=== PATIENT | female | born 1990 | race Two or more races ===

== ENCOUNTER → 2020-12-19 | Outpatient (CLI) | payer MEDICAID ==
[~2020-12-19] MED LIST: CEFAZOLIN SODIUM 1000MG/VIAL ONE; FENTANYL CITRATE/PF 50MCG/ML 2ML VIAL ONE; MORPHINE SULFATE/PF 1MG/ML 10ML AMP ONE
== END | disposition home or self-care (01) ==
LOC: LAB 09:52
PROVIDERS: ATTEND Obstetrics & Gynecology
DX: Z01.812 Encounter for preprocedural laboratory examination (principal); Z20.822 Contact with and (suspected) exposure to COVID-19
CPT/HCPCS: 87426

== ENCOUNTER 2020-12-20 05:54 | Inpatient (IN) | payer MEDICAID ==
[~2020-12-20] VITALS: Ht 152.4 cm; Wt 72.6 kg
[2020-12-20] MEDS ORDERED: NALOXONE HCL 0.4 MG/ML 1ML VIAL IM PRN (07:30)
[2020-12-20] MEDS ORDERED: DEXT 5%/LR + PITOCIN 20UNITS/L 1,000 ML IV SCH ×2 (07:30→15:15)
[2020-12-20] MEDS ORDERED: METHYLERGONOVINE MALEATE 0.2 MG/ML IM PRN (07:30)
[2020-12-20] MEDS: LACTATED RINGERS 1,000 ML IV SCH ×2 (07:35→12:56)
[2020-12-20 07:40] LABS: CLARITY URINE CLOUDY (CLEAR); COLOR URINE YELLOW (YELLOW); KETONES URINE NEGATIVE (NEGATIVE); LEUKOCYTE ESTERASE URINE 1+ (NEGATIVE); NITRITE URINE NEGATIVE (NEGATIVE); OCCULT BLOOD URINE NEGATIVE (NEGATIVE); PROTEIN URINE NEGATIVE (NEGATIVE); SPECIFIC GRAVITY URINE 1.015 (1.005-1.030)
[2020-12-20 07:48] LABS: INR 0.9; PARTIAL THROMBOPLASTIN TIME 27.5 sec (23.4-31.0); PROTHROMBIN TIME 9.7 sec (9.6-11.0)
[2020-12-20 07:54] LABS: BASOPHILS % 0.6 % (0.0-2.0); HEMATOCRIT. 36.5 % (36.0-48.0); HEMOGLOBIN. 12.6 g/dL (12.0-16.0); LYMPHOCYTES % 19.9 % (20.0-50.0); MEAN CORPUSCULAR HEMOGLOBIN 30.4 pg (28.0-32.0); MEAN PLATELET VOLUME 9.6 fl (7.4-10.4); MONOCYTES % 5.3 % (2.0-8.0); NEUTROPHILS % 73.2 % (40.0-76.0); PLATELET 309 x1000/uL (130-400); RED BLOOD CELL COUNT 4.15 mill/uL (4.2-5.4); RED CELL DISTRIBUTION WIDTH 13.8 % (11.6-14.6)
[2020-12-20 07:57] LABS: *BARBITURATES SCREEN URINE NEGATIVE (NEGATIVE)
[2020-12-20 07:58] LABS: *BENZODIAZEPINES SCREEN URINE NEGATIVE (NEGATIVE); *COCAINE SCREEN URINE NEGATIVE (NEGATIVE); METHADONE URINE SCREEN NEGATIVE (NEGATIVE); OPIATES URINE SCREEN NEGATIVE (NEGATIVE); PHENCYCLIDINE URINE SCREEN NEGATIVE (NEGATIVE)
[2020-12-20 07:59] LABS: *AMPHETAMINES SCREEN URINE NEGATIVE (NEGATIVE); CANNABINOID URINE SCREEN NEGATIVE (NEGATIVE)
[2020-12-20 08:47] LABS: HEPATITIS B SURFACE ANTIGEN NEGATIVE
[2020-12-20] MEDS ORDERED: LABETALOL 5MG/ML SYR 20 MG/4 ML SYRINGE IV PRN (13:30)
[2020-12-20] MEDS ORDERED: BUTORPHANOL TARTRATE 2 MG/ML VIAL IM PRN (13:30)
[2020-12-20] MEDS ORDERED: KETOROLAC 30MG/ML VIAL IV PRN (13:30)
[2020-12-20] MEDS ORDERED: HYDROMORPHONE HCL/PF 2MG/ML CPJ IV PRN (13:30)
[2020-12-20] MEDS ORDERED: MEPERIDINE HCL/PF 25MG/ML CPJ IV PRN (13:30)
[2020-12-20] MEDS ORDERED: DIPHENHYDRAMINE 50MG/ML VIAL IV PRN (13:30)
[2020-12-20] MEDS ORDERED: ONDANSETRON HCL 4MG/2ML INJ IV PRN ×2 (13:30→15:15)
[2020-12-20] MEDS ORDERED: HEMORRHOIDAL SUPP PR PRN (15:15)
[2020-12-20] MEDS ORDERED: LANOLIN OINT 7GM TUBE TOP PRN (15:15)
[2020-12-20] MEDS ORDERED: RHO(D) IMMUNE GLOBULIN 300 MCG/SYR IM PRN (15:15)
[2020-12-20] MEDS ORDERED: IBUPROFEN 400MG TABLET PO PRN (15:15)
[2020-12-20] MEDS ORDERED: HYDROCODONE/ACETAMINOPHEN 5/325MG TABLET PO PRN (15:15)
[2020-12-20] MEDS ORDERED: BISACODYL 10MG SUPP PR PRN (15:15)
[2020-12-20 17:00] VITALS: BP 91/58
[2020-12-20] MEDS ORDERED: TETANUS, DIPHTHERIA, PERTUSSIS VAC/PF 0.5ML (>10YR OLD) IM ONE (20:15)
[2020-12-20] MEDS: MAGNESIUM/ALUMINUM HYDROXIDE/SIMETHICONE 30ML UDC PO SCH (20:49)
[2020-12-20] MEDS: DOCUSATE SODIUM 100MG CAPSULE PO SCH (20:50)
[2020-12-20] MEDS: SIMETHICONE 80MG TABLET CHEW PO SCH (20:50)
[2020-12-20 21:00] VITALS: BP 101/59
[2020-12-21] VITALS: BP 102/63
[2020-12-21 05:00] VITALS: BP 105/83
[2020-12-21] MEDS: IBUPROFEN 800MG TABLET PO PRN ×2 (05:45→21:34)
[2020-12-21 07:08] LABS: BASOPHILS % 0.3 % (0.0-2.0); EOSINOPHILS % 0.7 % (0.0-5.0); HEMOGLOBIN. 11.8 g/dL (12.0-16.0); LYMPHOCYTES % 8.6 % (20.0-50.0); MONOCYTES % 5.3 % (2.0-8.0); NEUTROPHILS % 85.1 % (40.0-76.0); PLATELET 249 x1000/uL (130-400); RED BLOOD CELL COUNT 3.93 mill/uL (4.2-5.4); RED CELL DISTRIBUTION WIDTH 13.8 % (11.6-14.6)
[2020-12-21 07:30] VITALS: BP 106/62
[2020-12-21] MEDS: FERROUS SULFATE 325MG TABLET PO SCH ×3 (08:41→18:26)
[2020-12-21] MEDS: PRENATAL VIT/FE FUMARATE/FA TABLET PO SCH (08:41)
[2020-12-21] MEDS: MAGNESIUM/ALUMINUM HYDROXIDE/SIMETHICONE 30ML UDC PO SCH ×4 (08:41→21:34)
[2020-12-21] MEDS: SIMETHICONE 80MG TABLET CHEW PO SCH ×4 (08:42→21:34)
[2020-12-21] MEDS ORDERED: INFLUENZA VACCINE 05/PF 0.5 ML SYRINGE IM ONE (10:00)
[2020-12-21 16:37] VITALS: BP 101/50
[2020-12-21 20:00] VITALS: BP 105/53
[2020-12-21] MEDS: DOCUSATE SODIUM 100MG CAPSULE PO SCH (21:33)
[2020-12-22 04:00] VITALS: BP 115/63
[2020-12-22] MEDS: PRENATAL VIT/FE FUMARATE/FA TABLET PO SCH (08:47)
[2020-12-22] MEDS: FERROUS SULFATE 325MG TABLET PO SCH (08:47)
[2020-12-22] MEDS: MAGNESIUM/ALUMINUM HYDROXIDE/SIMETHICONE 30ML UDC PO SCH (08:47)
[2020-12-22] MEDS: IBUPROFEN 800MG TABLET PO PRN (15:47)
== END 2020-12-22 16:10 | disposition home or self-care (01) | DRG 540 ==
LOC: OBSVTOIN 05:54 → 8 EST LDRP 05:54 → 8EST 16:51
PROVIDERS: ADMIT Obstetrics & Gynecology; ATTEND Obstetrics & Gynecology
PROC: 10D00Z1 Extraction of Products of Conception, Low, Open Approach (ICD-10-PCS; principal; 2020-12-20)
DX: O34.211 Maternal care for low transverse scar from previous cesarean delivery (principal); D25.9 Leiomyoma of uterus, unspecified; O34.13 Maternal care for benign tumor of corpus uteri, third trimester; Z37.0 Single live birth; Z3A.00 Weeks of gestation of pregnancy not specified
CPT/HCPCS: 36415; 80305; 81003; 85025; 86592; 86703; 86762; 86850; 86900; 87340; 88307; 90686; 90715; 99281; J0690; J2274; J2590; J2704; J3010; J7120; A4315